=== PATIENT | female | born 1985 | race Caucasian/White ===

== ENCOUNTER 2017-04-13 19:42 | Emergency (ER) | payer MEDICAID ==
[2017-04-13] MEDS ORDERED: DEXAMETHASONE 10 MG/ML VIAL PO STA (20:16)
[2017-04-13] MEDS ORDERED: KETOROLAC 60 MG/2 ML VIAL IM STA (20:16)
--- NOTE | 2017-04-13 20:16 | ED Physician Documentation ---
PD HPI LOWER EXT INJURY - Stated complaint Stated Complaint: RT LEG/FOOT PX - Chief complaint Chief Complaint: Ext Problem - History obtained from History obtained from: Patient, Family - History of Present Illness PD HPI LOW EXT INJURY LOCATION: Right, Foot Where injury occurred: Home Timing - onset: How many weeks ago (1) Timing - details: Gradual onset, Still present Associated symptoms: No: Weakness, Numbness, Swelling Similar symptoms before: Has not had sx before Recently seen: Not recently seen - Additional information Additional information: Patient is a 31 year old female with no significant past medical history who is presenting to the emergency department for right plantar foot pain. Patient states that for the last week she has had worsening pain in the bottom of her foot with radiation up her lateral lower leg. Patient denies any trauma, chest pain or shortness of breath. Patient does report that she is on her feet a lot for work. Review of Systems Constitutional: denies: Fever, Chills Eyes: reports: Reviewed and negative Ears: reports: Reviewed and negative Nose: reports: Reviewed and negative Throat: reports: Reviewed and negative Cardiac: denies: Chest pain / pressure, Calf pain Respiratory: denies: Dyspnea, Cough, Hemoptysis, Wheezing GI: denies: Nausea, Vomiting : reports: Reviewed and negative Skin: reports: Reviewed and negative Musculoskeletal: reports: Extremity pain Neurologic: denies: Generalized weakness, Focal weakness Immunocompromised: denies: Immunocompromised PD PAST MEDICAL HISTORY - Past Medical History Past Medical History: No Endocrine/Autoimmune: None Musculoskeletal: None - Past Surgical History 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 - Present Medications Home Medications: Ambulatory Orders Medication Instructions Recorded Confirmed Amoxicillin/Potassium Clav 1 each PO BID #14 tablet 05/20/15 [Augmentin 875-125 Tablet] Hydrocodone/Acetaminophen [Terry 1 each PO Q6H PRN #15 tablet 05/20/15 5-325 Tablet] Ibuprofen 800 mg PO TID #15 tablet 05/20/15 Hydrocodone/Acetaminophen [Terry 1 each PO Q6H PRN #15 tablet 12/07/15 5-325 Tablet] - Allergies Allergies/Adverse Reactions: Allergies Allergy/AdvReac Type Severity Reaction Status Date / Time Sulfa (Sulfonamide Allergy Severe Hives Verified 04/13/17 19:45 Antibiotics) - Social History Does the pt smoke?: Yes Smoking Status: Current every day smoker Does the pt drink ETOH?: No Does the pt have substance abuse?: No - Immunizations Immunizations are current?: Yes - POLST Patient has POLST: No PD ED PE NORMAL - Vitals Vital signs reviewed: Yes - General General: Alert and oriented X 3, No acute distress - HEENT HEENT: Atraumatic, PERRL, Moist mucous membranes - Cardiac Cardiac: RRR - Respiratory Respiratory: No respiratory distress - Abdomen Abdomen: Non distended - Derm Derm: Normal color, Warm and dry, No rash - Extremities Extremities: No deformity, No edema, No calf tenderness / cord - Neuro Neuro: Alert and oriented X 3, No motor deficit, No sensory deficit - Psych Psych: Normal mood PD ED PE EXPANDED - Extremities Extremities: Right foot (mild tenderness to palpation of plantar surface of foot , no gross deformity) Results - Vitals Vitals: Vital Signs - 24 hr 04/13/17 19:45 Temperature 36.4 C L Heart Rate 74 Respiratory 16 Rate Blood Pressure 118/77 O2 Saturation 100 Oxygen O2 Source Room air PD MEDICAL DECISION MAKING - ED course Complexity details: reviewed old records, reviewed results, re-evaluated patient , considered differential, d/w patient ED course: Patient was seen and examined at bedside. Patient was well appearing and in no distress. There was no sign of trauma or gross abnormality. patient required no further work up and was stable for discharge with outpatient follow up. Departure - Departure Disposition: 01 Home, Self Care Clinical Impression: Plantar fasciitis of right foot Condition: Good Instructions: ED Plantar Fasciitis Follow-Up: primary,care provider [Other] - As Needed Comments: Your symptoms today are being caused by plantar fascitis. The most important treatment would be NSAIDS (ibuprofen) and stretching. You can try ice and heat as well. You should follow up with your doctor if your symptoms persist. You may return to the emergency department at any time for new worsening or uncontrollable sympotms.
[2017-04-13] MEDS ORDERED: CHERRY SYRUP 10 ML UDC PO ONE (20:34)
[2017-04-13 20:54] VITALS: BP 105/59
== END 2017-04-13 20:52 | disposition home or self-care (01) ==
LOC: ED 19:42
DX: M72.2 Plantar fascial fibromatosis (principal); F17.200 Nicotine dependence, unspecified, uncomplicated
CPT/HCPCS: 96372; 99283; A9270

== ENCOUNTER 2017-05-26 19:18 | Emergency (ER) | payer MEDICAID ==
--- NOTE | 2017-05-26 20:03 | ED Physician Documentation ---
PD HPI HEENT - Stated complaint Stated Complaint: EAR/EYE PX - Chief complaint Chief Complaint: Heent - History obtained from History obtained from: Patient - History of Present Illness Timing - onset: How many days ago (2) Timing - duration: Days (few) Timing - details: Gradual onset Location: Left ear, Other (left eye with redness and discharge.) Associated symptoms: Congestion (left facial/sinus congestion and ear pain, with now eye discahrge as well.). No: Fever, Headache Similar symptoms before: Has not had sx before Recently seen: Not recently seen Review of Systems Constitutional: denies: Fever, Chills Eyes: reports: Discharge, Irritation. 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 - Present Medications Home Medications: Ambulatory Orders Medication Instructions Recorded Confirmed Ibuprofen 800 mg PO TID #15 tablet 05/20/15 Cephalexin [Keflex] 500 mg PO TID #20 capsule 05/26/17 Dexamethasone [Decadron] 4 mg PO DAILY #5 tablet 05/26/17 HYDROcod/ACETAM 5/325 [Bailey 5/325] 1 tab PO Q6H PRN #15 tablet 05/26/17 - Allergies Allergies/Adverse Reactions: Allergies Allergy/AdvReac Type Severity Reaction Status Date / Time Sulfa (Sulfonamide Allergy Severe Hives Verified 05/26/17 19:25 Antibiotics) - Social History Does the pt smoke?: Yes Smoking Status: Current every day smoker Does the pt drink ETOH?: No Does the pt have substance abuse?: No - Immunizations Immunizations are current?: Yes - POLST Patient has POLST: No PD ED PE NORMAL - Vitals Vital signs reviewed: Yes - General General: Alert and oriented X 3, No acute distress, Well developed/nourished - HEENT HEENT: PERRL (left eye with redness and matting. Right slight red. ), Moist mucous membranes, Pharynx benign. No: Ears normal (TM left with redness and some fluid behind it. ) - Neck Neck: Supple, no meningeal sign, No adenopathy - Cardiac Cardiac: RRR, No murmur - Respiratory Respiratory: Clear bilaterally Results - Vitals Vitals: Oxygen O2 Source Room air PD MEDICAL DECISION MAKING - ED course Complexity details: considered differential (may be just viral cause, but eyes are particularly red and gooey. ), d/w patient Departure - Departure Disposition: 01 Home, Self Care Clinical Impression: Conjunctivitis Qualifiers: Conjunctivitis type: acute Acute conjunctivitis type: bacterial Laterality: right Qualified Code(s): H10.31 - Unspecified acute conjunctivitis, right eye Sinusitis, acute Qualifiers: Sinusitis location: maxillary Recurrence: non-recurrent Qualified Code(s): J01.00 - Acute maxillary sinusitis, unspecified Condition: Stable Record reviewed to determine appropriate education?: Yes Instructions: ED Sinusitis Abx Tx Prescriptions: Cephalexin [Keflex] 500 mg PO TID #20 capsule Dexamethasone [Decadron] 4 mg PO DAILY #5 tablet HYDROcod/ACETAM 5/325 [Bailey 5/325] 1 tab PO Q6H PRN #15 tablet PRN Reason: Pain Comments: Use erythromycin eye ointment 4 times a day for the next few days for the conjunctivitis. He also seems a half likely sinus infection and extended to the throat and the ear. Use cephalexin 3 times a day for a week. Dexamethasone steroid anti-inflammatory daily for 5 more days to help reduce inflammation and pain. Add Tylenol if needed for pain or ibuprofen instead. Add hydrocodone if needed for worse pain. Recheck if not improved over the next few days. Discharge Date/Time: 05/26/17 21:04
[2017-05-26] MEDS ORDERED: HYDROcod/ACETAM 5/325 MG TABLET PO STA (20:31)
[2017-05-26] MEDS ORDERED: DEXAMETHASONE 10 MG/ML VIAL PO STA (20:31)
[2017-05-26] MEDS ORDERED: cephALEXin 250 MG CAPSULE PO STA (20:31)
[2017-05-26] MEDS ORDERED: ERYTHROMYCIN OPHTH OINT 1 GM TUBE RIGHTEYE STA (20:32)
[2017-05-26] MEDS ORDERED: CHERRY SYRUP 10 ML UDC PO ONE (20:46)
[2017-05-26 21:05] VITALS: BP 119/76
== END 2017-05-26 21:04 | disposition home or self-care (01) ==
LOC: ED 19:18
DX: H10.31 Unspecified acute conjunctivitis, right eye (principal); J01.00 Acute maxillary sinusitis, unspecified; F17.200 Nicotine dependence, unspecified, uncomplicated
CPT/HCPCS: 99283; A9270; J3490

== ENCOUNTER 2017-05-29 13:40 | Emergency (ER) | payer MEDICAID ==
--- NOTE | 2017-05-29 14:29 | XRAY Report ---
EXAM: CHEST RADIOGRAPHY EXAM DATE: 05/29/2017 02:07 PM. CLINICAL HISTORY: Shortness of breath, tightness in chest, rhonchi. COMPARISON: None. TECHNIQUE: 2 views. FINDINGS: Lungs/Pleura: No focal consolidation. No pleural effusion. No pneumothorax. Normal volumes. Mediastinum: Heart and mediastinal contours are normal. Other: None. IMPRESSION: No acute cardiopulmonary abnormality. [facility] Referring Provider Line: [phone] SITE ID: [id number]
--- NOTE | 2017-05-29 15:48 | ED Physician Documentation ---
PD HPI URI - Stated complaint Stated Complaint: SOA/CHEST DISCOMFORT - Chief complaint Chief Complaint: General - History obtained from History obtained from: Patient - History of Present Illness Timing - onset: How many weeks ago (1-2 weeks of URI symptoms and sinus pressure. seen recently for that and is improving. However now cough prominent with productive harsh cough.) Timing details: Gradual onset Associated symptoms: Chills, Productive cough, Chest pain. No: Fever, Hemoptysis, Dyspnea, NVD, Bilateral edema Contributing factors: No: Travel, Immunocompromised, COPD / asthma Similar symptoms before: Has not had sx before Recently seen: Emergency Dept Review of Systems Constitutional: reports: Chills, Myalgias, Fatigue. denies: Fever Nose: reports: Sinus pressure / pain (improving) Throat: denies: Sore throat Cardiac: reports: Chest pain / pressure (with coughing). denies: Palpitations Respiratory: reports: Cough. 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 - Present Medications Home Medications: Ambulatory Orders Medication Instructions Recorded Confirmed Cephalexin [Keflex] 500 mg PO TID #20 capsule 05/26/17 Dexamethasone [Decadron] 4 mg PO DAILY #5 tablet 05/26/17 HYDROcod/ACETAM 5/325 [[place] 5/325] 1 tab PO Q6H PRN #15 tablet 05/26/17 Azithromycin [Zithromax] 250 mg PO DAILY #6 tablet 05/29/17 Benzonatate [Tessalon] 100 mg PO TID PRN #25 capsule 05/29/17 Dexamethasone [Decadron] 4 mg PO DAILY #5 tablet 05/29/17 - Allergies Allergies/Adverse Reactions: Allergies Allergy/AdvReac Type Severity Reaction Status Date / Time Sulfa (Sulfonamide Allergy Severe Hives Verified 05/29/17 13:55 Antibiotics) - Social History Does the pt smoke?: Yes Smoking Status: Current every day smoker Does the pt drink ETOH?: No Does the pt have substance abuse?: No - Immunizations Immunizations are current?: Yes - POLST Patient has POLST: No PD ED PE NORMAL - Vitals Vital signs reviewed: Yes - General General: Alert and oriented X 3, No acute distress, Well developed/nourished - HEENT HEENT: Ears normal, Pharynx benign - Neck Neck: Supple, no meningeal sign, No adenopathy - Cardiac Cardiac: RRR, No murmur - Respiratory Respiratory: No respiratory distress. No: Clear bilaterally (central/hilar coarse sounds with cough and deep breathing. No wheezing. ) - Abdomen Abdomen: Soft, Non tender - Derm Derm: Normal color, Warm and dry, No rash Results - Vitals Vitals: Oxygen O2 Source Room air PD MEDICAL DECISION MAKING - ED course Complexity details: considered differential (had URI and sinus symptoms and now having productive cough. Sounds like it could be secondary bronchitis. ), d/w patient Departure - Departure Disposition: 01 Home, Self Care Clinical Impression: Upper respiratory infection Qualifiers: URI type: unspecified URI Qualified Code(s): J06.9 - Acute upper respiratory infection, unspecified Condition: Stable Record reviewed to determine appropriate education?: Yes Instructions: ED Upper Resp Infec Abx Tx Prescriptions: Azithromycin [Zithromax] 250 mg PO DAILY #6 tablet Benzonatate [Tessalon] 100 mg PO TID PRN #25 capsule PRN Reason: Cough Dexamethasone [Decadron] 4 mg PO DAILY #5 tablet Comments: At this point I would continue the current antibiotic and the last day of the steroid tomorrow. See if it needed just a little bit more time to start improving. If your symptoms persist, then change to Zithromax antibiotic and Decadron continue the Decadron steroid for 5 more days. Add Tessalon if needed for cough. Drink lots of fluids. Discharge Date/Time: 05/29/17 16:00
[2017-05-29 16:28] VITALS: BP 111/75
== END 2017-05-29 16:00 | disposition home or self-care (01) ==
LOC: ED 13:40
DX: J06.9 Acute upper respiratory infection, unspecified (principal); F17.200 Nicotine dependence, unspecified, uncomplicated
CPT/HCPCS: 71046; 93005; 99283

== ENCOUNTER 2018-01-08 10:37 | Emergency (ER) | payer MEDICAID ==
--- NOTE | 2018-01-08 11:40 | XRAY Report ---
Reason: cough Procedure Date: 01/08/2018 Accession Number: [id number] / [id number] Procedure: XR - Chest 2 View X-Ray CPT Code: 18802 FULL RESULT: EXAM: CHEST RADIOGRAPHY EXAM DATE: 01/08/2018 11:13 AM. CLINICAL HISTORY: Cough. COMPARISON: CHEST 2 VIEW 05/29/2017 2:07 PM. TECHNIQUE: 2 views. FINDINGS: Lungs/Pleura: No focal opacities evident. No pleural effusion. No pneumothorax. Normal volumes. Mediastinum: Heart and mediastinal contours are unremarkable. Other: None. IMPRESSION: Normal 2-view chest radiography. [facility]
[2018-01-08] MEDS ORDERED: BENZONATATE 100 MG CAPSULE PO STA (12:12)
[2018-01-08] MEDS ORDERED: DEXAMETHASONE 10 MG/ML VIAL PO STA (12:12)
[2018-01-08] MEDS ORDERED: ALBUTEROL NEB 2.5 MG/3 ML INH STA (12:12)
[2018-01-08] MEDS ORDERED: CHERRY SYRUP 10 ML UDC PO ONE (12:15)
[2018-01-08] MEDS ORDERED: ALBUTEROL NEB 2.5 MG/3 ML INH ONE (12:24)
--- NOTE | 2018-01-08 12:59 | ED Physician Documentation ---
PD HPI URI - Stated complaint Stated Complaint: BACK PX/SOA - Chief complaint Chief Complaint: Resp - History obtained from History obtained from: Patient - Additional information Additional information: 32-year-old female presents the emergency department with several days of nasal congestion, cough, wheezing, shortness of breath and tightness. The patient is a daily smoker. The patient denies a history of asthma or lung disease. Patient denies fevers or chills. No relieving factors. Symptoms are described as moderate. No other associated symptoms Review of Systems Constitutional: reports: Fatigue. 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 - Present Medications Home Medications: Ambulatory Orders Medication Instructions Recorded Confirmed Albuterol Sulf [Ventolin Hfa 1 - 2 puffs INH Q4HR PRN #1 inhaler 01/08/18 Inhaler] Benzonatate [Tessalon Perle] 100 - 200 mg PO TID PRN #30 capsule 01/08/18 - Allergies Allergies/Adverse Reactions: Allergies Allergy/AdvReac Type Severity Reaction Status Date / Time Sulfa (Sulfonamide Allergy Severe Hives Verified 01/08/18 10:43 Antibiotics) - Social History Does the pt smoke?: Yes Smoking Status: Current every day smoker Does the pt drink ETOH?: No Does the pt have substance abuse?: No - Immunizations Immunizations are current?: Yes - POLST Patient has POLST: No PD ED PE NORMAL - General General: Alert and oriented X 3, No acute distress - HEENT HEENT: Atraumatic, PERRL, EOMI, Ears normal - Neck Neck: Supple, no meningeal sign - Cardiac Cardiac: RRR - Respiratory Respiratory: No respiratory distress, Other (Bilateral expiratory wheezing with fair aeration) - Derm Derm: Normal color, No rash - Extremities Extremities: No deformity, Normal ROM s pain - Neuro Neuro: Alert and oriented X 3, Normal speech - Psych Psych: Normal affect Results - Vitals Vitals: Vital Signs - 24 hr 01/08/18 01/08/18 10:41 12:26 Temperature 36.0 C L Heart Rate 77 80 Respiratory 16 16 Rate Blood Pressure 135/77 H O2 Saturation 95 Oxygen O2 Source Room air - Rads (name of study) Chest x-ray Radiology: Final report received PD MEDICAL DECISION MAKING - ED course ED course: The patient's symptoms appear to be from a viral bronchitis, I discussed with the patient smoking cessation. The patient appears appropriate for discharge and outpatient management. I discussed warning signs and recommended returning to the emergency department immediately for any worsening or any concerns. Departure - Departure Disposition: Home, Self Care Clinical Impression: Acute bronchitis Qualifiers: Bronchitis organism: unspecified organism Qualified Code(s): J20.9 - Acute bronchitis, unspecified Condition: Good Instructions: ED Upper Resp Infec No Abx Tx Ch Follow-Up: Provider,Other [Primary Care Provider] - Within 1 week Prescriptions: Albuterol Sulf [Ventolin Hfa Inhaler] 1 - 2 puffs INH Q4HR PRN #1 inhaler PRN Reason: Shortness Of Air/Wheezing Benzonatate [Tessalon Perle] 100 - 200 mg PO TID PRN #30 capsule PRN Reason: Cough Comments: Please follow-up with primary care for recheck. Please return to the emergency department for worsening symptoms or any concerns
[2018-01-08 13:16] VITALS: BP 128/74
== END 2018-01-08 13:14 | disposition home or self-care (01) ==
LOC: ED 10:37
DX: J20.9 Acute bronchitis, unspecified (principal); F17.200 Nicotine dependence, unspecified, uncomplicated
CPT/HCPCS: 71046; 94640; 99283; A9270; 94664

== ENCOUNTER 2018-06-21 17:51 | Emergency (ER) | payer MEDICAID ==
--- NOTE | 2018-06-21 19:12 | ED Physician Documentation ---
PD HPI URI - Stated complaint Stated Complaint: SOA - Chief complaint Chief Complaint: Resp - History obtained from History obtained from: Patient - History of Present Illness Timing - onset: How many weeks ago (2-3) Timing duration: Weeks (2-3) Timing details: Gradual onset, Still present Associated symptoms: Productive cough (green sputum for few weeks, and not improving. Wheezing increased last few days. Ran out of inhaler.), Dyspnea. No: Hemoptysis, NVD Contributing factors: COPD / asthma Similar symptoms before: Diagnosis (asthma and bronchitis/pneumonia) Recently seen: Not recently seen Review of Systems Constitutional: reports: Fever Nose: reports: Congestion. denies: Rhinorrhea / runny nose Throat: denies: Sore throat Cardiac: reports: Chest pain / pressure (with coughing) Respiratory: reports: Dyspnea, Cough, Wheezing GI: denies: Vomiting, Diarrhea Neurologic: reports: Generalized weakness, Headache. 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 - Present Medications Home Medications: Ambulatory Orders Medication Instructions Recorded Confirmed Albuterol Sulf [Ventolin Hfa 1 - 2 puffs INH Q4HR PRN #1 inhaler 01/08/18 06/21/18 Inhaler] Albuterol 2.5 mg INH Q4H PRN #30 neb 06/21/18 Albuterol Sulf [Ventolin Hfa 2 - 3 puffs INH Q4HR PRN #1 inhaler 06/21/18 Inhaler] Cetirizine [ZyrTEC] 10 mg PO DAILY #15 tablet 06/21/18 Dexamethasone [Decadron] 4 mg PO DAILY #10 tablet 06/21/18 Doxycycline Hyclate 100 mg PO BID #20 capsule 06/21/18 Nebulizer [Truneb Nebulizer] 1 each MC QID PRN #1 each 06/21/18 - Allergies Allergies/Adverse Reactions: Allergies Allergy/AdvReac Type Severity Reaction Status Date / Time Sulfa (Sulfonamide Allergy Severe Hives Verified 06/21/18 17:58 Antibiotics) - Social History Does the pt smoke?: Yes Smoking Status: Current every day smoker Does the pt drink ETOH?: No Does the pt have substance abuse?: No - Immunizations Immunizations are current?: Yes - POLST Patient has POLST: No PD ED PE NORMAL - Vitals Vital signs reviewed: Yes - General General: Alert and oriented X 3, No acute distress, Well developed/nourished - HEENT HEENT: Pharynx benign - Neck Neck: Supple, no meningeal sign, No adenopathy - Cardiac Cardiac: RRR, No murmur - Respiratory Respiratory: No: Clear bilaterally (diffuse wheezing. No coarse sounds. ) - Abdomen Abdomen: Soft, Non tender - Extremities Extremities: No edema, No calf tenderness / cord - Neuro Neuro: Alert and oriented X 3, No motor deficit, Normal speech Results - Vitals Vitals: Oxygen O2 Source Room air PD MEDICAL DECISION MAKING - ED course Complexity details: re-evaluated patient (feels much improved with neb treatment), considered differential (prolonged productive cough with asthma. ), d/w patient Departure - Departure Disposition: 01 Home, Self Care Clinical Impression: Bronchitis Asthma Qualifiers: Asthma severity: mild Asthma persistence: intermittent Asthma complication type: with acute exacerbation Qualified Code(s): J45.21 - Mild intermittent asthma with (acute) exacerbation Condition: Stable Record reviewed to determine appropriate education?: Yes Instructions: ED Bronchitis Asthmatic Prescriptions: Albuterol Sulf [Ventolin Hfa Inhaler] 2 - 3 puffs INH Q4HR PRN #1 inhaler PRN Reason: Shortness Of Air/Wheezing Albuterol 2.5 mg INH Q4H PRN #30 neb PRN Reason: Wheezing Cetirizine [ZyrTEC] 10 mg PO DAILY #15 tablet Dexamethasone [Decadron] 4 mg PO DAILY #10 tablet Doxycycline Hyclate 100 mg PO BID #20 capsule Nebulizer [Truneb Nebulizer] 1 each MC QID PRN #1 each PRN Reason: Wheezing Comments: Use albuterol inhaler 2-3 puffs 4 times a day for the next week and extra times as needed. I wrote for a nebulizer in the medication for it. We will have to see if your insurance covers that or not. Bring home the nebulizer tubing and mouthpiece that he used this evening as that can be used with a nebulizer. It does sound like a possible bacterial infection so use a doxycycline antibiotic as directed. Also add steroid Decadron daily for 7-10 days to reduce the airway inflammation to adjunct with the albuterol. Cetirizine antihistamine to decrease any congestion. Recheck if not improving over the next several days to week. Forms: Activity restrictions Discharge Date/Time: 06/21/18 20:33
[2018-06-21] MEDS ORDERED: CETIRIZINE 10 MG TABLET PO STA (19:22)
[2018-06-21] MEDS ORDERED: DOXYCYCLINE 100 MG TABLET PO STA (19:22)
[2018-06-21] MEDS ORDERED: DEXAMETHASONE 10 MG/ML VIAL PO STA (19:22)
[2018-06-21] MEDS ORDERED: ALBUTEROL NEB 2.5 MG/3 ML INH STA ×2 (19:22→19:56)
[2018-06-21] MEDS ORDERED: BENZONATATE 100 MG CAPSULE PO STA (19:57)
[2018-06-21 20:34] VITALS: BP 140/90
== END 2018-06-21 20:33 | disposition home or self-care (01) ==
LOC: ED 17:51
DX: J40 Bronchitis, not specified as acute or chronic (principal); J45.21 Mild intermittent asthma with (acute) exacerbation; F17.200 Nicotine dependence, unspecified, uncomplicated
CPT/HCPCS: 94640; 94664; 99283; A9270

== ENCOUNTER 2019-06-01 15:00 | Emergency (ER) | payer MEDICAID ==
[2019-06-01 15:09] VITALS: BP 109/78
--- NOTE | 2019-06-01 15:43 | ED Physician Documentation ---
PD HPI HEENT - Stated complaint Stated Complaint: COUGH - Chief complaint Chief Complaint: Resp - History obtained from History obtained from: Patient - History of Present Illness Timing - onset: Other (This is a 33-year-old smoker who presents with 4 days of productive cough, mild shortness of breath, nasal congestion. No fevers or chills. Her daughter is sick with a similar illness. No recent travel.) Review of Systems Ten Systems: 10 systems reviewed and negative Constitutional: denies: Fever, Chills Nose: reports: Rhinorrhea / runny nose, Congestion Throat: denies: Sore throat Respiratory: reports: Dyspnea, Cough. 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 - Present Medications Home Medications: Ambulatory Orders Medication Instructions Recorded Confirmed Albuterol Sulf [Ventolin Hfa 1 - 2 puffs INH Q4HR PRN #1 inhaler 01/08/18 06/21/18 Inhaler] Albuterol 2.5 mg INH Q4H PRN #30 neb 06/21/18 Albuterol Sulf [Ventolin Hfa 2 - 3 puffs INH Q4HR PRN #1 inhaler 06/21/18 Inhaler] Cetirizine [ZyrTEC] 10 mg PO DAILY #15 tablet 06/21/18 Doxycycline Hyclate 100 mg PO BID #20 capsule 06/21/18 Nebulizer [Truneb Nebulizer] 1 each MC QID PRN #1 each 06/21/18 dexAMETHasone [Decadron] 4 mg PO DAILY #10 tablet 06/21/18 Guaifenesin/Pseudoephedrne HCl 1 each PO BID PRN #20 tab.er.12h 06/01/19 [Mucinex D ER 600-60 mg Tablet] predniSONE [Deltasone] 60 mg PO DAILY 5 Days #15 tablet 06/01/19 - Allergies Allergies/Adverse Reactions: Allergies Allergy/AdvReac Type Severity Reaction Status Date / Time Sulfa (Sulfonamide Allergy Severe Hives Verified 06/01/19 15:09 Antibiotics) - Social History Does the pt smoke?: Yes Smoking Status: Current every day smoker Does the pt drink ETOH?: No Does the pt have substance abuse?: No - Immunizations Immunizations are current?: Yes - POLST Patient has POLST: No PD ED PE NORMAL - Vitals Vital signs reviewed: Yes - General General: Alert and oriented X 3, No acute distress - HEENT HEENT: Ears normal, Pharynx benign - Neck Neck: Supple, no meningeal sign, No bony TTP - Cardiac Cardiac: RRR, No murmur - Respiratory Respiratory: No respiratory distress, Clear bilaterally - Abdomen Abdomen: Non tender - Derm Derm: No rash - Neuro Neuro: Alert and oriented X 3, Normal speech Results - Vitals Vitals: Vital Signs - 24 hr 06/01/19 15:07 Temperature 36.7 C Heart Rate 91 Respiratory 20 Rate Blood Pressure 109/78 O2 Saturation 98 Oxygen O2 Source Room air PD MEDICAL DECISION MAKING - ED course ED course: This 33-year-old woman with viral URI, fairly normal exam. Given the shortness of breath we will trial some steroids along with decongestant. I do not see any evidence of bacterial infection to necessitate antibiotics. Departure - Departure Disposition: 01 Home, Self Care Clinical Impression: Viral bronchitis Condition: Good Record reviewed to determine appropriate education?: Yes Instructions: ED Bronchitis Asthmatic Prescriptions: Guaifenesin/Pseudoephedrne HCl [Mucinex D ER 600-60 mg Tablet] 1 each PO BID PRN #20 tab.er.12h PRN Reason: congestion predniSONE [Deltasone] 60 mg PO DAILY 5 Days #15 tablet Comments: Important to try to quit smoking, that is definitely not helping and probably hurting this illness. Return for new or worsening symptoms. Follow-up with your doctor next week if not better.
== END 2019-06-01 15:51 | disposition home or self-care (01) ==
LOC: ED 15:00
DX: J06.9 Acute upper respiratory infection, unspecified (principal); J20.8 Acute bronchitis due to other specified organisms; F17.210 Nicotine dependence, cigarettes, uncomplicated
CPT/HCPCS: 99282; 99283

== ENCOUNTER 2020-02-26 08:00 | Outpatient (CLI) | payer MEDICAID | END 2020-02-26 23:59 | disposition home or self-care (01) | LOC: LAB.R 08:00 | PROVIDERS: ATTEND Nurse Practitioner | DX: Z20.828 Contact with and (suspected) exposure to other viral communicable diseases (principal) | CPT/HCPCS: 87275; 87276 ==

== ENCOUNTER 2020-08-12 08:44 | Outpatient (CLI) | payer MEDICAID ==
--- NOTE | 2020-08-12 16:16 | XRAY Report ---
PROCEDURE: Foot 3 View RT INDICATIONS: R FOOT PX TECHNIQUE: 3 views of the foot were acquired. COMPARISON: 01/01/2013 FINDINGS: Bones: No fractures or dislocations. No suspicious bony lesions. Large plantar calcaneal bone spur. Soft tissues: No tibiotalar joint effusion. Achilles tendon appears normal. IMPRESSION: No fracture. No acute osseous lesion. If there persistent symptoms or continued clinical concern for pathology, then repeat plain film radiographs (7-10 days) or advanced imaging (CT, MR, bone scan) katie uld be considered for further evaluation. Reviewed by: Kristin Escobar MD, PhD on 08/12/2020 4:14 PM PDT Approved by: Kristin Escobar MD, PhD on 08/12/2020 4:14 PM PDT Station ID: [id number]
== END 2020-08-12 08:45 | disposition home or self-care (01) ==
LOC: DI.N 08:44
PROVIDERS: ATTEND Nurse Practitioner Family
DX: M79.671 Pain in right foot (principal)

== ENCOUNTER 2021-01-17 14:20 | Emergency (ER) | payer MEDICAID ==
[2021-01-17 14:27] VITALS: BP 128/80
--- NOTE | 2021-01-17 15:06 | XRAY Report ---
PROCEDURE: Foot 3 View LT INDICATIONS: toe injuries TECHNIQUE: 3 views of the foot were acquired. COMPARISON: None FINDINGS: Bones: In this patient with this given history, scrutiny is given to the toes. No fractures or dislo cations can be seen. Note is made of a sesamoid bone involving the interphalangeal joint of the great toe. No fractures or dislocations are seen elsewhere. No suspicious bony lesions. A moderate plantar calcaneal spur is incidentally noted. Soft tissues: No tibiotalar joint effusion. Achilles tendon appears normal. IMPRESSION: No acute abnormality can be seen, including involving the toes. Reviewed by: Rich Mendez MD on 01/17/2021 2:05 PM [facility] Approved by: Rich Mendez MD on 01/17/2021 2:05 PM [facility] Station ID: [id number]
--- NOTE | 2021-01-17 15:24 | ED Physician Documentation ---
History of Present Illness - Stated complaint Stated Complaint: LT TOE INJ - Chief complaint Chief Complaint: Ext Problem - History obtained from History obtained from: Patient - Additonal information Additional information: Patient was walking and slipped in the mud. She injured her left 3rd and 4th toes though unsure exactly how. She is concerned they are bruised, tender, and slightly swollen. No other injuries, skin intact. 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 - Present Medications Home Medications: Ambulatory Orders Medication Instructions Recorded Confirmed Albuterol Sulf [Ventolin Hfa 1 - 2 puffs INH Q4HR PRN #1 inhaler 01/08/18 06/21/18 Inhaler] Albuterol 2.5 mg INH Q4H PRN #30 neb 06/21/18 Albuterol Sulf [Ventolin Hfa 2 - 3 puffs INH Q4HR PRN #1 inhaler 06/21/18 Inhaler] Cetirizine [ZyrTEC] 10 mg PO DAILY #15 tablet 06/21/18 Doxycycline Hyclate 100 mg PO BID #20 capsule 06/21/18 Nebulizer [Truneb Nebulizer] 1 each MC QID PRN #1 each 06/21/18 dexAMETHasone [Decadron] 4 mg PO DAILY #10 tablet 06/21/18 Guaifenesin/Pseudoephedrne HCl 1 each PO BID PRN #20 tab.er.12h 06/01/19 [Mucinex D ER 600-60 mg Tablet] predniSONE [Deltasone] 60 mg PO DAILY 5 Days #15 tablet 06/01/19 - Allergies Allergies/Adverse Reactions: Allergies Allergy/AdvReac Type Severity Reaction Status Date / Time Sulfa (Sulfonamide Allergy Severe Hives Verified 01/17/21 14:27 Antibiotics) - Social History Does the pt smoke?: Yes Smoking Status: Current every day smoker Does the pt drink ETOH?: No Does the pt have substance abuse?: No - Immunizations Immunizations are current?: Yes - POLST Patient has POLST: No PD ED PE NORMAL - Vitals Vital signs reviewed: Yes - General General: Alert and oriented X 3, No acute distress, Well developed/nourished - HEENT HEENT: Atraumatic, Moist mucous membranes - Cardiac Cardiac: RRR, No murmur - Respiratory Respiratory: No respiratory distress, Clear bilaterally - Derm Derm: Normal color, Warm and dry, No rash - Extremities Extremities: No deformity, No edema, No calf tenderness / cord, Other (possible slight swelling/bruising of the left 3-4th toes. No deformity or erythema. Mildly tender toes, no other foot ttp. ) Results - Vitals Vitals: Vital Signs - 24 hr 01/17/21 14:23 Temperature 37.2 C Heart Rate 80 Respiratory 16 Rate Blood Pressure 128/80 O2 Saturation 95 Oxygen O2 Source Room air PD MEDICAL DECISION MAKING - ED course Complexity details: reviewed results, d/w patient ED course: Patient presented after the foot injury. We obtained x-rays which are reassuring, no signs of fracture. Her skin is intact. Advised supportive measures including cool compress, foot elevation, as needed ibuprofen or Tylenol. Patient follow-up with her primary care provider if no improvement in 1 to 2 weeks. Departure - Departure Disposition: 01 Home, Self Care Clinical Impression: Toe contusion Qualifiers: Encounter type: initial encounter Toe: lesser toe Damage to nail status: without damage Laterality: left Qualified Code(s): S90.122A - Contusion of left lesser toe(s) without damage to nail, initial encounter Condition: Good Instructions: ED Contusion Lower Extr Ch Comments: You presented after a left foot injury. We did an x-ray which showed no fractures. You have some mild bruising which will improve on its own. You may use cool compress, elevate and take ibuprofen or Tylenol as needed for pain. Discharge Date/Time: 01/17/21 15:30
== END 2021-01-17 15:30 | disposition home or self-care (01) ==
LOC: ED 14:20
DX: S90.122A Contusion of left lesser toe(s) without damage to nail, initial encounter (principal); W01.0XXA Fall on same level from slipping, tripping and stumbling without subsequent striking against object, initial encounter; Y93.01 Activity, walking, marching and hiking; F17.200 Nicotine dependence, unspecified, uncomplicated
CPT/HCPCS: 99282; 99283

== ENCOUNTER 2021-07-20 08:00 | Outpatient (CLI) | payer MEDICAID | END 2021-07-20 08:01 | disposition home or self-care (01) | LOC: LAB.N 08:00 | PROVIDERS: ATTEND Nurse Practitioner | DX: U07.1 COVID-19 (principal) ==

== ENCOUNTER 2021-12-28 17:25 | Emergency (ER) | payer MEDICAID ==
--- NOTE | 2021-12-28 17:36 | ED Physician Documentation ---
PD HPI HEENT - Stated complaint Stated Complaint: TOOTH INFECTION - Chief complaint Chief Complaint: Heent - History obtained from History obtained from: Patient - History of Present Illness Timing - onset: How many days ago (few) Timing - duration: Days (few) Timing - details: Gradual onset, Still present Location: Tooth (right lower tooth pain with swelling and redness, no drainage. Went to dentist today and Rx Amox but no pain meds, and was directed to the ER to get "parenteral dose of antibiotics". 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 - Present Medications Home Medications: Ambulatory Orders Medication Instructions Recorded Confirmed Albuterol Sulf [Ventolin Hfa 1 - 2 puffs INH Q4HR PRN #1 inhaler 01/08/18 12/28/21 Inhaler] Albuterol 2.5 mg INH Q4H PRN #30 neb 06/21/18 12/28/21 Nebulizer [Truneb Nebulizer] 1 each MC QID PRN #1 each 06/21/18 12/28/21 Chlorhexidine Gluconate [Peridex] 15 ml MM TID #118 ml 12/28/21 HYDROcod/ACETAM 5/325 [[place] 5/325] 1 ea PO Q6H PRN #18 tablet 12/28/21 - Allergies Allergies/Adverse Reactions: Allergies Allergy/AdvReac Type Severity Reaction Status Date / Time Sulfa (Sulfonamide Allergy Severe Hives Verified 12/28/21 17:28 Antibiotics) - Social History Does the pt smoke?: Yes Smoking Status: Current every day smoker Does the pt drink ETOH?: Yes Does the pt have substance abuse?: No - Immunizations Immunizations are current?: No Immunizations: Other immun not current - POLST Patient has POLST: No PD ED PE NORMAL - Vitals Vital signs reviewed: Yes - General General: Alert and oriented X 3, No acute distress, Well developed/nourished - HEENT HEENT: No: Dentition benign (diffuse decay. Right lower first molar with decay and tenderness. Swelling without fluctuance at gum area. Some submandibular swelling without firmness nor fluctuance. ) - Neck Neck: Supple, no meningeal sign, No adenopathy - Cardiac Cardiac: RRR, No murmur - Respiratory Respiratory: Clear bilaterally - Derm Derm: Normal color, Warm and dry - Neuro Neuro: Alert and oriented X 3, No motor deficit, Normal speech Results - Vitals Vitals: Vital Signs - 24 hr 12/28/21 12/28/21 17:28 18:19 Temperature 36.7 C Heart Rate 88 85 Respiratory 16 16 Rate Blood Pressure 133/80 H 123/75 O2 Saturation 97 95 Oxygen O2 Source Room air PD MEDICAL DECISION MAKING - ED course Complexity details: considered differential (Infection seemed fairly regular dental infection. Not sure rupesh dentist wanted her to get IM/IV dose, but patie nt expectation is there and so not unreasonable. Considered clinda dose but out of stock for iM dose and I did not think IV needed, so went with IM rocephin. ), d/w patient Departure - Departure Disposition: 01 Home, Self Care Clinical Impression: Dental infection, Pain, dental Condition: Stable Record reviewed to determine appropriate education?: Yes Follow-Up: BALA PADGETT, MSN, SENIOR ADVISOR [Primary Care Provider] - Prescriptions: HYDROcod/ACETAM 5/325 [[place] 5/325] 1 ea PO Q6H PRN #18 tablet PRN Reason: Pain Chlorhexidine Gluconate [Peridex] 15 ml MM TID #118 ml Comments: Continue with the amoxicillin prescribed by your dentist. Continue with some ibuprofen or naproxen 2 tablets 3 times daily. We did give you an injection of the extra antibiotic clindamycin to augment the prescription. Add Tylenol every 4-6 hours as needed for pain or Percocet if needed for worse pain. Also use antiseptic chlorhexidine mouth rinse twice daily for the next 7 to 10 days. I sent prescriptions to your [facility] pharmacy. I am prescribing a short course of narcotic pain medication for you. These are potentially dangerous and addictive medications that should be used carefully. These medications may constipate you. Take an [id number] stool softener such as docusate twice daily with plenty of water while taking these medications. If you go 24 hours without a bowel movement, take [id number] MiraLAX, per package instructions. Do not drink or drive while taking these medications. If you received narcotic or sedating medications while in the emergency de partment do not drive for 24 hours. Store this medication in a safe, secure place and out of reach of children. It is a violation of federal law to give or sell this medication to another person or to use in a manner other than prescribed. The ED will not refill narcotic prescriptions, including prescriptions lost or stolen. You can dispose of unwanted medications at the [facility]'s office or at several pharmacies such as [facility]. Discharge Date/Time: 12/28/21 18:20
[2021-12-28] MEDS ORDERED: CLINDAMYCIN 300 MG/2 ML VIAL IM STA (17:44)
[2021-12-28] MEDS ORDERED: HYDROmorphone 1 MG/ML CARPUJECT IM STA (17:44)
[2021-12-28] MEDS ORDERED: LIDOCAINE 1% 2 ML VIAL MC ONE (17:58)
[2021-12-28] MEDS ORDERED: cefTRIAXone 500 MG VIAL IM STA (17:58)
[2021-12-28 18:20] VITALS: BP 123/75
== END 2021-12-28 18:20 | disposition home or self-care (01) ==
LOC: ED 17:25
DX: K08.9 Disorder of teeth and supporting structures, unspecified (principal); F17.200 Nicotine dependence, unspecified, uncomplicated
CPT/HCPCS: 96372; 99281; 99283; J1170

== ENCOUNTER 2022-08-26 08:34 | Outpatient (CLI) | payer MEDICAID ==
[2022-08-26 12:03] LABS: BASOPHILS # (AUTO) 0.1 10^3/uL (0.0-0.1); BASOPHILS % (AUTO) 0.4 %; EOSINOPHILS # (AUTO) 0.2 10^3/uL (0.0-0.7); EOSINOPHILS % (AUTO) 1.6 %; HCT - HEMATOCRIT 44.1 % (37.0-47.0); HGB - HEMOGLOBIN 14.6 g/dL (12.0-16.0); LYMPHOCYTES # (AUTO) 2.7 10^3/uL (1.5-3.5); LYMPHOCYTES % (AUTO) 22.7 %; MEAN CORPUSCULAR HEMOGLOBIN 30.7 pg (27.0-31.0); MEAN CORPUSCULAR HGB CONC 33.1 g/dL (32.0-36.0); MEAN CORPUSCULAR VOLUME 92.6 fL (81.0-99.0); MEAN PLATELET VOLUME 10.4 fL (7.9-10.8); MONOCYTES # (AUTO) 0.8 10^3/uL (0.0-1.0); NEUTROPHILS # (AUTO) 7.9 10^3/uL (1.5-6.6); PLT - PLATELET COUNT 339 10^3/uL (130-450); RED BLOOD COUNT 4.76 10^6/uL (4.20-5.40); RED CELL DISTRIBUTION WIDTH 13.9 % (12.0-15.0); WHITE BLOOD COUNT 11.7 x10^3/uL (4.8-10.8)
[2022-08-26 13:13] LABS: ALBUMIN 3.7 g/dL (3.2-5.5); ALBUMIN/GLOBULIN RATIO 1.1 (1.0-2.2); ALKALINE PHOSPHATASE 58 IU/L (42-121); ALT ALANINE AMINOTRANSFERASE 18 IU/L (10-60); AST ASPARTATE AMINOTRANSFERASE 17 IU/L (10-42); BILIRUBIN,TOTAL 0.5 mg/dL (0.2-1.0); BUN - BLOOD UREA NITROGEN 8 mg/dL (6-20); CALCIUM 8.4 mg/dL (8.5-10.3); CARBON DIOXIDE - CO2 23 mmol/L (21-32); CHLORIDE 108 mmol/L (101-111); CHOL/HDL RATIO 4.7 (<4.4); CHOLESTEROL 163 mg/dL; CREATININE 0.7 mg/dL (0.4-1.0); GFR - MDRD 94 (>89); GLUCOSE 96 mg/dL (70-100); HDL CHOLESTEROL 35 mg/dL; LDL CHOLESTEROL,CALCULATED 114 mg/dL; LDL/HDL RATIO 3.3 (<4.4); POTASSIUM 3.9 mmol/L (3.5-5.0); SODIUM 139 mmol/L (135-145); TOTAL PROTEIN 7.2 g/dL (6.7-8.2); TRIGLYCERIDES 68 mg/dL; VLDL CHOLESTEROL 14 mg/dL
[2022-08-26 13:14] LABS: THYROID STIMULATING HORMONE 3.29 uIU/mL (0.34-5.60)
[2022-08-26 13:47] LABS: ESTIMATED AVERAGE GLUCOSE 100 mg/dL (70-100); HEMOGLOBIN A1c% 5.1 % (4.27-6.07)
== END 2022-08-26 08:35 | disposition home or self-care (01) ==
LOC: LAB.N 08:34
PROVIDERS: ATTEND Nurse Practitioner
DX: R53.83 Other fatigue (principal); Z13.220 Encounter for screening for lipoid disorders; E66.01 Morbid (severe) obesity due to excess calories
CPT/HCPCS: 36415; 80053; 80061; 83036; 83721; 84443; 85025